=== PATIENT | female | born 1960 | race Caucasian/White ===

== ENCOUNTER 2016-08-01 12:11 | Inpatient (IN) | payer OTHER ==
--- NOTE | ~2016-08-01 | A ---
[facility] Nutrition Therapy DATE: 08/03/16 Patient: CANDICE DIMAS Physician: RICARDOAIRF Address: [address] Room/Bed: [address], Zip: [place] [address] Admit Date: 08/01/16 Date of : 60 Height: 5 4 Weight: [phone] NUTRITIONAL ASSESSMENT: REASON: UNINTENTIONAL WEIGHT LOSS PATIENT ADMITTED FOR SI, DEPRESSION, ANXIETY PMH: IBS Anthropometrics: HT: 64", WT: 119#, BMI: 20.4, %IBW: 99 Labs: 08/02/16- GLU: 117 Meds: VIT B12, WELLBUTRIN XL, BUSPAR, MVI, LOPERAMIDE Assessment: PATIENT IS A 56 Y/O FEMALE ADMITTED FOR SI, DEPRESSION, AND ANXIETY. PATIENT IS CURRENTLY EMPLOYED, LIVES WITH HER , AND DENIES ANY SUBSTANCE ABUSE. PATIENT REPORTS BEING COMPLIANT WITH HER MEDICATIONS AND SHE RECEIVES OUTPATIENT PSYCH TREATMENT. UPON ADMIT PATIENT STATED A POOR APPETITE WITH AN 8# WEIGHT LOS OVER LAST SEVERAL WEEKS, AND SHE IS ONLY SLEEPING 2HRS/NIGHT ON AVERAGE. NURSING REPORTS GOOD PO INTAKES. PATIENT HAS IBS AND CONTROLS IT WITH MEDICAITON AND DIET. PATIENT DOES NOT CONSUME DAIRY, EGGS, SOY, SAUSAGE, PEACHES, APPLES, OR BREAD. PATIENT'S NUTRITIONAL LABS WERE WNL, HER BMI IS WITHIN A HEALTHY RANGE, AND SHE IS 99% OF HER IBW. THERE ARE NO SKIN ISSUES NOTED ATT. PATIENT IS ON A REGULAR, NO DAIRY DIET. Dx: UNINTENTIONAL WEIGHT LOSS R/T CURRENT CONDITION, DEPRESSION AEB SELF-REPORTED WEIGHT LOSS AND DECREASED APPETITE, NUTRITIONAL RISK POINT Intervention: REGULAR DIET WITH NO DAIRY, MEDS PER MD, PSYCH Monitoring, Evaluation and Goals: 1. ADEQUATE PO INTAKES >50% OF MEALS 2. PREVENT, CORRECT MICRO/MACRO NUTRIENT DEFICIENCIES 3. WEIGHT; MAINTAIN CURRENT WEIGHT, PREVENT FURTHER WEIGHT LOSS MONITOR; WEIGHTS, LABS, PO/FLUID INTAKES Recommendations: 1. CONTINUE REGULAR NO DAIRY DIET TOLERATED. 2. ENCOURAGE ADEQUATE PO AND FLUID INTAKES 3. OBTAIN WEIGHTS ROUTINELY (EVERY 3-4 DAYS) 4[address] CON[address] RD WITH ANY FURTHER NUTRITION QUESTIONS OR CONCERNS [facility] Therapy DATE: 08/03/16 Patient: CANDICE DIMAS Physician: RICARDOAIRF Address: [address] Room/Bed: P258-1 [facility], Zip: [place] [address] Admit Date: 08/01/16 Date of : [birth year] Height: 5 4 Weight: [id number] TO F/U PER PROTOCOL AND PRN R/T PATIENT MILDLY COMPROMISED Respectfully, NORMA BERKOWITZ RD, LD [facility] cc: client file
--- NOTE | ~2016-08-01 | PN ---
Unit #: [id number] #: [id number] Patient: CANDICE DIMAS [id number] [facility] [address] [place] [address] [id number] I MR#: [id number] NAME: CANDICE DIMAS ROOM: P258 Age: 56 Sex: F Admission Date: 08/01/2016 : 1960 Attending Physician: Dionna Ge M.D. Admitting Physician: Dionna Ge M.D. Primary Care Physician: Primary Care Physician Kennedi DAMON NOTES DATE 08/04/2016 DISCUSSION Ms. Dimas is a 56-year-old white female who was seen today and chart was reviewed and case was discussed with the staff. She has extremely anxious and also has been voicing complaint about medication. She started Wellbutrin and at this point she reports that she does not like any one of the medications. that she needs to find something different, some different medication and she needs to be started on a very lose dose so she can tolerate the medication. We will discontinue . We will monitor her response and make further adjustments as needed. Dictated by... Dionna Ge M.D. IAA/gladis TD: 08/05/2016 09:39 JOB #: [id number] JOAO DAMON NOTES Page 1 of 1 X Dionna Ge MD PROGRESS NOTE
--- NOTE | ~2016-08-01 | PN ---
Unit #: [id number] #: [id number] Patient: CANDICE DIMAS [id number] [facility] [address] [place] [address] [id number] I MR#: [id number] NAME: CANDICE DIMAS ROOM: P258 Age: 56 Sex: F Admission Date: 08/01/2016 : 1960 Attending Physician: Dionna Ge M.D. Admitting Physician: Dionna Ge M.D. Primary Care Physician: Primary Care Physician Kennedi SHEPHERD PROGRESS NOTES DATE 08/05/2016 DISCUSSION Ms. Dimas is a 56-year-old white female who was seen today and chart was reviewed and case was discussed with the staff. She has been anxious, withdrawn although she reports that she did take her first dose of Effexor yesterday and did really well and felt in energy but then she had trouble sleeping therefore would like Effexor to be pulled to around lunch time rather than supper time. MENTAL STATUS EXAMINATION Middle-aged white female who was casually dressed with fair personal hygiene, appears to be in no acute distress or discomfort. She was awake and alert on interaction with intact orientation. Her mood was anxious and depressed with congruent affect. She denies any suicidal or homicidal ideations. Her insight and judgement remains slightly impaired. TREATMENT PLAN 1. We will continue her on her current medications and treatment protocol. We will monitor her response to the medication and make further adjustments as needed. 2. We will continue to follow up. Dictated by... Pedro Paredes/bebe TD: 08/05/2016 23:57 JOB #: [id number] Unit #: [id number] #: [id number] Patient: CANDICE DIMAS PROGRESS NOTES Page 1 of 1 X Dionna Ge MD PROGRESS NOTE
--- NOTE | ~2016-08-01 | PN ---
Unit #: [id number] #: [id number] Patient: CANDICE DIMAS [id number] [facility] [address] [place] [address] [id number] I MR#: [id number] NAME: CANDICE DIMAS ROOM: P258 Age: 56 Sex: F Admission Date: 08/01/2016 : 1960 Attending Physician: Dionna Ge M.D. Admitting Physician: Dionna Ge M.D. Primary Care Physician: Primary Care Physician Kennedi DAMON NOTES DATE OF SERVICE 08/02/2016 DISCUSSION Ms. Dimas is a 56-year-old white female who was seen today. Chart was reviewed and case was discussed with the staff. She has been anxious, withdrawn, and rather seclusive to herself. Meanwhile, she has been cooperative with the treatment recommendations and has been taking the medications and tolerating them fairly well with no reported side effects. MENTAL STATUS EXAMINATION Middle-aged white female who is casually dressed with fair personal hygiene, appears to be in no acute distress or discomfort. She was awake and alert with impaired attention and concentration. Her mood is anxious with congruent affect. Her speech is slow and restricted in content. Her thought process were disorganized with looseness of associations. Her insight and judgment remain slightly impaired. TREATMENT PLAN 1. We will continue her on her current medications and treatment protocol. We will monitor her response to the medications and make further adjustments as needed. 2. We will continue to follow up. Dictated by... Dionna Ge M.D. IAA/bzg TD: 08/03/2016 07:23 JOB #: [id number] Unit #: [id number] #: [id number] Patient: CANDICE DIMAS PROGRESS NOTES Page 1 of 1 X Dionna Ge MD PROGRESS NOTE
--- NOTE | ~2016-08-01 | PN ---
Unit #: [id number] #: [id number] Patient: CANDICE DIMAS [id number] [facility] [address] [place] [address] [id number] I MR#: [id number] NAME: CANDICE DIMAS ROOM: P258 Age: 56 Sex: F Admission Date: 08/01/2016 : 1960 Attending Physician: Dionna Ge M.D. Admitting Physician: Dionna Ge M.D. Primary Care Physician: Primary Care Physician No [facility] PROGRESS NOTES DATE DISCUSSION Dictated by... Pedro Paredes/bebe TD: 08/07/2016 01:11 JOB #: [id number] [facility] PROGRESS NOTES Page 1 of 1 X Dionna Ge MD X PROGRESS NOTE
--- NOTE | ~2016-08-01 | PN ---
Unit #: [id number] #: [id number] Patient: CANDICE DIMAS [id number] [facility] [address] [place] [address] [id number] I MR#: [id number] NAME: CANDICE DIMAS ROOM: P258 Age: 56 Sex: F Admission Date: 08/01/2016 : 1960 Attending Physician: Dionna Ge M.D. Admitting Physician: Dionna Ge M.D. Primary Care Physician: Primary Care Physician Kennedi DAMON NOTES DATE 08/03/2016 DISCUSSION Ms. Dimas is a 56-year-old white female who was seen today and chart was reviewed and case was discussed with the staff. She has been anxious, withdrawn and rather seclusive to herself. Meanwhile, she has been cooperative with treatment recommendations and has been taking medications and tolerating them fairly well with no reported side effects. MENTAL STATUS EXAMINATION Middle-aged white female who was casually dressed with fair personal hygiene and appears to be in no acute distress or discomfort. She was awake and alert on interaction with intact orientation. Her mood was anxious with congruent affect. She denies any suicidal or homicidal ideation. Her insight and judgement remains slightly impaired. TREATMENT PLAN 1. Will continue on current medications and treatment protocol and will monitor her response to the medications and make further adjustments as needed. 2. Will continue to follow up. Dictated by... Dionna Ge M.D. IAA/bradford TD: 08/03/2016 18:15 JOB #: [id number] Unit #: [id number] #: [id number] Patient: CANDICE DIMAS PROGRESS NOTES Page 1 of 1 X Dionna Ge MD PROGRESS NOTE
--- NOTE | ~2016-08-01 | HP ---
Unit #: [id number] #: [id number] Patient: CANDICE DIMAS [id number] [place] [address] [id number] I MR#: [id number] NAME: CANDICE DIMAS ROOM: P258 Age: 56 Sex: F Admission Date: 08/01/2016 : 1960 Attending Physician: Dionna Ge M.D. Admitting Physician: Dionna Ge M.D. Primary Care Physician: Primary Care Physician No HISTORY AND PHYSICAL HISTORY OF PRESENT ILLNESS Candice is a 56 year old admitted to [address] [place] [address] with depression and verbalizing wanting to hurt herself. PAST MEDICAL HISTORY Irritable bowel syndrome. PAST SURGICAL HISTORY 1. Cholecystectomy. 2. T & A. 3. Appendectomy. 4. Tubal ligation. 5. Hysterectomy. 6. Right knee. 7. Vaginal sling. ALLERGIES Penicillin (hives) SOCIAL HISTORY She denies cigarettes, alcohol and illicit drug use. FAMILY HISTORY Medically noncontributory. REVIEW OF SYSTEMS CONSTITUTIONAL: No fever or chills. HEENT: Denies any sore throat, ear pain or runny nose. CARDIOVASCULAR: Denies chest pain, irregular heart rhythm or palpitations. CHEST: Denies shortness of breath or cough. No hemoptysis. GASTROINTESTINAL: Denies nausea, vomiting, diarrhea or chronic constipation. ENDOCRINE: Denies history of increased thirst or urination. No recent significant weight loss or gain. GENITOURINARY: Denies dysuria, frequency, or hematuria. SKIN: Denies any rashes. HEMATOLOGIC: Denies history of increased bleeding or bruising. MUSCULOSKELETAL: Denies any hot, swollen joints. No generalized muscle pain. NEUROLOGIC: Denies problems with vision or speech. No frequent, severe headaches. No numbness, tingling or weakness in any extremities. Denies loss of bladder or bowel control. Unit #: [id number] #: [id number] Patient: CANDICE DIMAS CURRENT MEDICATIONS 1. Simethicone 125 mg t.i.d. p.r.n. 2. Welchol 625 mg b.i.d. 3. Loperamide p.r.n. 4. Multi-vitamin 1 q day PHYSICAL EXAMINATION GENERAL: Alert, well-nourished, in no apparent distress. VITAL SIGNS: Blood pressure 144/82, heart rate 80, respirations 16, temperature 98.6. WEIGHT: 119 pounds. HEIGHT: 5'4". SKIN: Warm and dry without rash or lesion. HEENT: Normocephalic. TMs not viewed. Oral and nasal passages clear. Conjunctivae clear. Pupils equal, round and reactive to light and accommodation. Extraocular movements intact. NECK: Supple without lymphadenopathy or thyromegaly. HEART: Regular rate and rhythm without murmur. LUNGS: Clear. ABDOMEN: Soft, nontender. : Not done. EXTREMITIES: No evidence of cyanosis, clubbing or edema. Moves all extremities without focal deficit. NEUROLOGICAL: Grossly within normal limits. Cranial Nerves: II: Visual joel are intact. III, IV AND : Extraocular movements are intact. Pupils are equal, round and reactive to light. V: Facial sensation is grossly normal. VII: Facial movements and expression are normal. VIII: Auditory acuity grossly intact. IX, X: Uvula is midline. Phonation is normal. XI: Patient shrugs shoulders and turns head normally. XII: Tongue protrudes in the midline. Sensory and Motor Function: Sensory and motor sensation is grossly normal. Motor: moves all extremities well. Coordination: Gait is normal. Deep Tendon Reflexes: Intact. IMPRESSION Psychiatric admission RECOMMENDATIONS PSYCHIATRIC: Per psychiatrist. MEDICAL: I see no contraindications to participating in facility's activities. MEDICAL PROGNOSIS Good. MEDICAL CONDITION Stable. Dictated by... Annie Riley P.A.-C. for Israel Monique M.D. Unit #: [id number] #: [id number] Patient: CANDICE DIMAS CHRISTY/bebe TD: 08/02/2016 00:17 JOB #: [id number] HISTORY AND PHYSICAL Page 1 of 1 X Annie Riley HISTORY AND PHYSICAL
--- NOTE | ~2016-08-01 | TN ---
Unit #: [id number] #: [id number] Patient: CANDICE DIMAS [id number] [facility] [address] [place] [address] [id number] I MR#: [id number] NAME: CANDICE DIMAS ROOM: P258 Age: 56 Sex: F Admission Date: 08/01/2016 : 1960 Discharge Date: 08/07/2016 Attending Physician: Dionna Ge M.D. Primary Care Physician: Primary Care Physician No LOC TRANSFER NOTE DATE OF SERVICE: 08/08/2016 HISTORY OF PRESENT ILLNESS Ms. Dimas is a 56-year-old, , white female, who was stepped down to the outpatient treatment program from the adult inpatient psychiatric unit, where she was hospitalized under my care from 08/01/2016 through 08/07/2016, and was brought to the hospital with increasing depression and suicidal ideations going on for about a week and has been on different psychotropic medications in the past and had a trial of several SSRIs and has failed to respond and as such, was initially started on Wellbutrin, but she had tolerability issues to that as well and was seen to be very sensitive to most of medications and a very low dose of Effexor was started and she was still complaining of excessive sedation and the timing of the medication was changed a couple of times until it was brought down to the morning hours and was seen to be doing much better and it was decided that she will be discharged home. Upon evaluation by me, the patient reports doing much better and that she has smooth transition getting out of the hospital and going home and has been taking medications and has not been having any side effects, though she stated that she still feels persistent underlying depression and anxiety, which might have to do with the fact that she is on a low and subtherapeutic dose of Effexor. SUBSTANCE ABUSE HISTORY The patient denies any alcohol or drug abuse. PAST PSYCHIATRIC HISTORY The patient has had a history of outpatient psychiatric treatment. Review of the medical records indicate that currently she is on Effexor XR 37.5 mg in the morning. PAST MEDICAL HISTORY The patient's medical history is significant for irritable bowel syndrome. ALLERGIES Penicillin. PERSONAL AND SOCIAL HISTORY A 56-year-old white female, who reports that she is and lives at home with her and has fairly decent social support system. MENTAL STATUS EXAMINATION Unit #: [id number] #: [id number] Patient: CANDICE DIMAS Middle-aged white female, who was casually dressed with fair personal hygiene, appears to be in no acute distress or discomfort. She was awake and alert on interaction with intact orientation. Her mood was anxious with a congruent affect. Her speech was slow and goal directed. She denies any suicidal or homicidal ideations and also denies any auditory or visual hallucinations. Her insight and judgment remain slightly impaired. DIAGNOSTIC IMPRESSION Psychiatric: Major depressive disorder, recurrent, moderate, without psychotic features; generalized anxiety disorder. TREATMENT PLAN 1. The patient has presented with a history of mood disorder, and we will recommend enrolling her into the outpatient treatment program and maintaining her on her current medications. We will monitor her response and make further adjustments as needed. 2. Supportive therapy was provided to the patient. 3. Safe, structured, and nourishing environment will be reported. ESTIMATED LENGTH OF STAY 14 to 21 days. ABILITY TO HELP SELF Limited. WILLINGNESS TO HELP SELF The patient appears to be willing to help self. STRENGTHS 1. Communicative. 2. Cooperative. PROBLEMS 1. Chronic dysphoric symptoms. 2. Poor social support system. DISCHARGE CRITERIA This will be contingent upon the patient's ability to show resolution of her depression and anxiety and her ability to stay safe to herself, particularly after discharge from the program. Dictated by... Dionna Ge M.D. RENE/wayne TD: 08/09/2016 05:59 JOB #: [id number] Unit #: [id number] #: [id number] Patient: CANDICE DIMAS LOC TRANSFER NOTE Page 1 of 1 X Dionna Ge MD X LOC TRANSFER NOTE
--- NOTE | ~2016-08-01 | PA ---
Unit #: [id number] #: [id number] Patient: CANDICE DIMAS [id number] [facility] [address] [place] [address] [id number] I MR#: [id number] NAME: CANDICE DIMAS ROOM: P258 Age: 56 Sex: F Admission Date: 08/01/2016 : 1960 Date of Assessment: 08/01/2016 Attending Physician: Dionna Ge M.D. Admitting Physician: Dionna Ge M.D. Primary Care Physician: Primary Care Physician No PSYCHIATRIC ASSESSMENT DATE OF SERVICE 08/01/2016. IDENTIFYING DATA Ms. Dimas is a 56-year-old single white female, who is a resident of [place], [place], and was brought to the hospital by her , Ryder Dimas. CHIEF COMPLAINT "I've been feeling very suicidal, I just don't feel like living life." HISTORY OF PRESENT ILLNESS Ms. Dimas is a 56-year-old white female, who was brought to the hospital with increasing depression and suicidal ideations and not wanting to live anymore. "It has been going on for about a week ago. I've been on Prozac for a week and since then I've been having these thoughts. For the past few mornings, I've been thinking about taking pills and whether or not it would kill me, I did Google this morning to see how many pills I would have to take to kill myself and I'm a worry and I'm constantly worrying and I can't eat or sleep and control my body and I get these hot sweats and then I will get these cold chills and just don't want to feel this way anymore. The anxiety symptoms have increased in the past 3 months. I've been diagnosed with anxiety since my 30s and I've depression as well and I've no motivation. I don't want to go to work and when I come home, I don't want to do anything besides go to bed. I just have no motivation. The job is very stressful and I've put a lot of guilt and stress on myself. I've panic attacks and I live in a state of worry and panic and my mind races all of the time and I break out in the sweats and my heart beats fast and my knees will shake and this is daily and I can't get rid of it. I've been on Celexa for so long and it just was not doing anything for me and most of the time, I just can't tolerate taking medications that makes me sick, drowsy, and I feels hopeless and I just don't want to feel like this. I used to be happy and I enjoy my job and I used to enjoy doing things with my . I isolate myself from people at work and I'm also at home." Her reports that she has been worrying a lot about what she eats because she worries about getting diarrhea, but she wants to eat and has been having some significant anxiety in her life which has been debilitating and has been affecting her mood and also reports that her job is very stressful that she works real time analyst at [employer] and that her mother was hospitalized this year due to sickness and the patient reports that she lost her dad about 6 years ago. She also reports having no energy at this time, no motivation, and reports that it is very difficult for her to get ready for work and do activities Unit #: [id number] #: [id number] Patient: RE DIMASA of daily living and as such, was seen to be a significant threat to herself and others and therefore, recommendation for inpatient level of care for safety and stabilization was made and the patient was transferred to us. SUBSTANCE ABUSE HISTORY The patient denies any alcohol or drug abuse. PAST PSYCHIATRIC HISTORY The patient has had history of outpatient psychiatric treatment. Review of the medical records indicate that she has been on Prozac, but reports that it has made her suicidal thoughts worse. PAST MEDICAL HISTORY Irritable bowel syndrome. ALLERGIES Penicillin. PERSONAL AND SOCIAL HISTORY A 56-year-old white female, who reports that she is and employed at [employer] and lives at home with her and has fairly decent social support system. MENTAL STATUS EXAMINATION Middle-aged white female who was casually dressed with fair personal hygiene, appears to be in no acute distress or discomfort. She was awake and alert on interaction with intact orientation to time, place, and person. Her mood was anxious and depressed with a congruent affect. Her speech was slow and restricted in content. Her thought processes were disorganized with some looseness of associations and flight of ideas and suicidal ideations. Her insight and judgment remain significantly impaired. DIAGNOSTIC IMPRESSION Psychiatric: Major depressive disorder, recurrent, moderate, without psychotic features; generalized anxiety disorder. Medical: Irritable bowel syndrome. Stressors: Moderate psychosocial stressors. TREATMENT PLAN 1. The patient has presented with history of mood disorder, and has been decompensating and will need inpatient hospitalization for safety and stabilization. We will start her back on her home medications. We will adjust the medications and monitor response. 2. Supportive therapy was provided to the patient. 3. Safe, structured, and nourishing environment will be provided. ESTIMATED LENGTH OF STAY 4 to 5 days. ABILITY TO HELP SELF Limited. WILLINGNESS TO HELP SELF The patient appears to be willing to help self. STRENGTHS 1. Communicative. Unit #: [id number] #: [id number] Patient: CANDICE DIMAS 2. Cooperative. PROBLEMS 1. Chronic dysphoric symptoms. 2. Poor social support system. DISCHARGE CRITERIA This will be contingent upon the patient's ability to show resolution of her depression and anxiety and her ability to stay safe to herself, particularly after discharge from the hospital. Dictated by... Dionna Ge M.D. RENE/wayne TD: 08/02/2016 08:03 JOB #: [id number] PSYCHIATRIC ASSESSMENT Page 1 of 1 X Dionna Ge MD PSYCHIATRIC ASSESSMENT
--- NOTE | ~2016-08-01 | PN ---
Unit #: [id number] #: [id number] Patient: CANDICE DIMAS [id number] [facility] [address] [place] [address] [id number] MR#: [id number] NAME: CANDICE DIMAS ROOM: P258 Age: 56 Sex: F Admission Date: 08/01/2016 : 1960 Attending Physician: Dionna Ge M.D. Admitting Physician: Dionna Ge M.D. Primary Care Physician: Primary Care Physician Kennedi DAMON NOTES DATE 08/06/2016 DISCUSSION Ms. Dimas is a 56-year-old white female who was seen today and chart was reviewed and case was discussed with the staff. She remains anxious, withdrawn, depressed and seclusive to herself and reports not functioning very well and has been having feelings of hopelessness and helplessness. She has been taking the medications and tolerating them fairly well with no reported side effects. MENTAL STATUS EXAMINATION Middle-aged white female who was casually dressed with fair personal hygiene, appears to be in no acute distress or discomfort. She was awake and alert with intact orientation. Her mood was anxious with congruent affect. She reports having suicidal ideation but denies any homicidal ideations. Her insight and judgement remains slightly impaired. TREATMENT PLAN 1. We will continue her on her current medications and treatment protocol. We will monitor her response to the medication and make further adjustments as needed. 2. We will continue to follow up. Dictated by... Pedro Paredes/bebe TD: 08/07/2016 01:30 JOB #: [id number] Unit #: [id number] #: [id number] Patient: CANDICE DIMAS YANIVRASHI PROGRESS NOTES Page 1 of 1 X Dionna Ge MD PROGRESS NOTE
--- NOTE | ~2016-08-01 | DS ---
Unit #: [id number] #: [id number] Patient: [facility]IMAS [id number] [facility] [address] [id number] MR#: [id number] NAME: CANDICE DIMAS ROOM: P258 Age: 56 Sex: F Admission Date: 08/01/2016 : 1960 Discharge Date: 08/07/2016 Attending Physician: Dionna Ge M.D. Primary Care Physician: Primary Care Physician No DISCHARGE SUMMARY IDENTIFYING DATA Ms. Dimas is a 56-year-old white female, who is a resident of [place], [place], and was brought to the hospital by her . HISTORY OF PRESENT ILLNESS Please see initial psychiatric evaluation for details. PAST PSYCHIATRIC HISTORY Please see initial psychiatric evaluation for details. PAST MEDICAL HISTORY Please see initial psychiatric evaluation for details. HOSPITAL COURSE The patient was admitted to the Adult Psychiatric Unit at [facility] and was oriented to the hospital environment, and routine p.r.n. medications were initiated, and she was started back on home medications. However, she was seen to be exhibited significant anxiolytic issues and personality as she reports that she has been through a list of all of the SSRIs and all of them does not work and her more anxious, and therefore, Wellbutrin as an NDRI was started along with the BuSpar but she, once again, did not even give enough time to the medication and stated that she does not like it and wants to get off of them and that was switched and Vistaril was given but she felt that it was too strong for her so that was tapered down and Effexor then was started at a very low dose and the timing was constantly changed and the patient was constantly complaining of even having sedation with that medication and that was a very low dose; however, it was then finally switched to the morning time and she was able to find some comfort with that, and was denying any suicidal ideations, intent, or plan, and was watching to go home and as such it was decided that she will be kept on her current medications and will be discharged home to continue treatment on an outpatient basis. DISCHARGE DIAGNOSES Mindoro I Major depressive disorder, recurrent, moderate without psychotic features. Generalized anxiety disorder. Mindoro II Mindoro III Irritable bowel syndrome. Mindoro IV Mild psychosocial stressors. Mindoro V Unit #: [id number] #: [id number] Patient: CANDICE DIMAS DISCHARGE MEDICATIONS Effexor XR 37.5 mg in the morning CONDITION AT DISCHARGE Stable. PROGNOSIS Fair. Dictated by... Pedro Paredes/harvinder TD: 08/08/2016 07:12 JOB #: [id number] DISCHARGE SUMMARY Page 1 of 1 X Dionna Ge MD X DISCHARGE SUMMARY
--- NOTE | ~2016-08-01 | A ---
[facility] Nutrition Therapy DATE: 08/06/16 Patient: CANDICE DIMAS Physician: JOE Address: [facility] DAPHNE GARCIA Room/Bed: [address], Zip: [place] [address] Admit Date: 08/01/16 Date of : 60 Height: 5 4 Weight: [id number] NUTRITIONAL ASSESSMENT: REASON: CONSULT "PATIENT WANTS DIETARY CONSULT. PATIENT WANTS INFO ON FODMAP DIET" PATIENT ADMITTED FOR DEPRESSION, SI, AND ANXIETY Anthropometrics: 64", WT: 119# (NO NEW WEIGHT), BMI: 20.4 Labs: NO NEW LABS Assessment: PATIENT HAD AN ASSESSMENT COMPLETED ON 08/04/15. PLEASE REFER TO ASSESSMENT FOR FULL NUTRITIONAL ASESSMENT, INTERVENTION, AND RECOMMENDATIONS. PATIENT HAS A DIAGNOSIS OF IBS AND REQUESTED A DIETARY CONSULT. PATIENT LISTED THE FOOD ITEMS THAT SHE COULD AND COULDN'T TOLERATE. SHE IS UNABLE TO TOLERATE: WHEAT BREAD, SOY, DAIRY, APPLES, PEACHES, SAUSAGE, BANANAS, COOKED EGGS, BEANS, ENSURE, AND SUGAR FREE ITEMS. PATIENT DENIED ANY RECENT GI UPSET AND STATED THAT HER UBW IS NO MORE THAN 125#. PATIENT STATED SHE LIKES TURKEY SANDWHICHES, BERRIES, PINEAPPLE, POTATO CHIPS, AND WHITE BREAD, AMONG OTHER ITEMS. PATIENT DID NOT HAVE ANY FURTHER QUESTIONS ABOUT HER DIET. THIS RD LEFT IBS NUTRITION EDUCATION IN PATIENT'S CHART FOR HER TO RECEIVE UPON DISCHARGE, AND INFORMED HER TO ASK NURSING TO CONTACT ME IF SHE HAD ANY FURTHER QUESTIONS OR CONCERNS. Recommendations: PLEASE REFER TO FULL ASSESSMENT ON 08/03/16 FOR COMPLETE LIST OF RECOMMENDATIONS. PATIENT IS AWARE OF WHICH FOOD ITEMS SHE CAN AND CANNOT TOLERATE. WILL DISCUSS FOOD INTOLERANCES WITH DIETARY STAFF. RD TO CONTINUE TO F/U PER PROTOCOL AND PRN Respectfully, NORMA BERKOWITZ RD, LD [employer] [facility] cc: client file
[2016-08-02 09:42] LABS: BASOPHIL# 0.1 X10e3 (0-0.3); BASOPHIL% 0.7 % (0-2.5); EOSINOPHIL% 0.2 % (0.0-7.0); HEMATOCRIT 42.2 % (35.0-45.0); HEMOGLOBIN 14.1 gm/dL (12.0-16.0); LYMPHOCYTE# 1.1 X10e3 (1.0-3.5); MEAN CELL VOLUME 91.8 FL (83-96); MEAN CORPUSCULAR HEMOGLOBIN 30.7 PG (28-34); MEAN CORPUSCULAR HGB CONC 33.4 g/dL (30-36); MEAN PLATELET VOLUME 10.9 FL (6.5-11.5); MONOCYTE# 0.6 X10e3 (0-1.0); MONOCYTE% 8.2 % (3.0-12.0); NEUTROPHIL# 5.5 X10e3 (1.5-7.1); NEUTROPHIL% 75.9 % (40-75); PLATELET COUNT 224 X10e3 (140-420); RED CELL DISTRIBUTION WIDTH 12.7 % (11.0-15.5); WHITE BLOOD COUNT 7.2 X10e3 (4.0-10.5)
[2016-08-02 09:58] LABS: DIFF IND NO
[2016-08-02 10:13] LABS: BILIRUBIN,TOTAL 0.8 mg/dL (0.2-2.0); CALCIUM SERUM 9.9 mg/dL (8.4-10.2); PROTEIN TOTAL SERUM 7.7 g/dL (6.0-8.3)
[2016-08-05 13:09] LABS: URINE BILIRUBIN NEG (NEG); URINE BLOOD 1+ (NEG); URINE COLOR YELLOW; URINE GLUCOSE NORM (NORM); URINE KETONE NEG (NEG); URINE LEUKOCYTE ESTERASE NEG (NEG); URINE NITRATE NEG (NEG); URINE PROTEIN NEG (NEG); URINE SPECIFIC GRAVITY 1.025 (1.003-1.035); URINE UROBILINOGEN NORM (NORM)
[2016-08-05 13:17] LABS: URINE APPEARANCE TURBID
[2016-08-05 13:20] LABS: URBCS1 AUWI 0-2 /[HPF] (0-2); UWBCS1 AUWI 0-2 (0-5)
[2016-08-05 13:21] LABS: URINE AMORPHOUS SEDIMENT AMORP URATES; URINE CRYSTALS CALCIUM OXALATE /[HPF]
[2016-08-05 13:34] LABS: AMPHETAMINE NEG (NEG); BARBITURATES NEG (NEG); BENZODIAZEPINES NEG (NEG); COCAINE NEG (NEG); MARIJUANA NEG (NEG); OPIATES NEG (NEG); TRICYCLIC ANTIDEPRESSANTS NEG (NEG); U METHADONE NEG (NEG)
== END 2016-08-07 13:30 | disposition home or self-care (01) | DRG 885 ==
LOC: P2L 14:09
PROVIDERS: Psychiatry & Neurology Psychiatry
DX: F33.1 Major depressive disorder, recurrent, moderate (principal); F41.1 Generalized anxiety disorder; K58.9 Irritable bowel syndrome, unspecified; Z88.0 Allergy status to penicillin; Z90.710 Acquired absence of both cervix and uterus
CPT/HCPCS: 80053; 80307; 81003; 85025